=== PATIENT | male | born 1985 | race African-American/Black ===

== ENCOUNTER 2020-04-29 16:10 | Emergency (ER) | payer OTHER ==
[~2020-04-29] VITALS: Ht 193 cm; Wt 77.1 kg
[2020-04-29] MEDS ORDERED: SEIZURE MED (16:27)
[2020-04-30] MEDS ORDERED: METOPROLOL TART25 MG PO (04:01)
[2020-04-30] MEDS ORDERED: Phenergan25 M1 (04:01)
[2020-04-30] MEDS ORDERED: NEURONTIN300 MG PO (04:01)
[2020-04-30] MEDS ORDERED: CLON.1 PO (04:01)
[2020-04-30] MEDS ORDERED: Hydroxyzine HCl50 MG (04:01)
== END 2020-04-29 17:46 | disposition home or self-care (01) ==
LOC: ER 16:10
DX: F10.932 Alcohol use, unspecified with withdrawal with perceptual disturbance (principal); Z88.6 Allergy status to analgesic agent; Z88.5 Allergy status to narcotic agent
CPT/HCPCS: 99284

== ENCOUNTER 2020-04-29 22:28 | Inpatient (IN) | payer OTHER ==
[~2020-04-29] VITALS: Ht 193 cm; Wt 80.6 kg
[~2020-04-29 22:28] MED LIST: SEIZURE MED
[2020-04-29 22:54] LABS: BASOPHILS ABSOLUTE AUTO 0.05 K/mm3 (0.00-0.23); BASOPHILS PERCENT AUTO 1 % (0-2); EOSINOPHILS ABSOLUTE AUTO 0.09 K/mm3 (0.00-0.68); EOSINOPHILS PERCENT AUTO 2 % (0-6); Hematocrit 36.8 % (37.0-53.0); Hemoglobin 12.5 g/dL (13.5-17.5); IMMATURE GRAN ABSOLUTE AUTO 0.02 K/mm3 (0.00-0.10); IMMATURE GRAN PERCENT AUTO 0 % (0-1); LYMPHOCYTES ABSOLUTE AUTO 1.23 K/mm3 (0.84-5.20); LYMPHOCYTES PERCENT AUTO 24 % (21-46); MONOCYTES ABSOLUTE AUTO 0.67 K/mm3 (0.16-1.47); MONOCYTES PERCENT AUTO 13 % (4-13); Mean Corpuscular HGB 33.5 pg (26.0-34.0); Mean Corpuscular Volume 99 fL (80-100); Mean Platelet Volume 9.6 fL (9.1-12.4); NEUTROPHILS PERCENT AUTO 60 % (41-73); Platelet Count 220 K/mm3 (150-400); RDW Coefficient Variation 13.4 % (11.7-14.2); RDW Standard Deviation 48.8 fL (35.1-46.3); Red Blood Cell Count 3.73 M/mm3 (4.30-5.90); White Blood Cell Count 5.16 K/mm3 (4.00-11.30)
[2020-04-29 23:08] LABS: Alanine Aminotransfer (ALT/SGP 59 U/L (12-78); Albumin, Blood 4.1 g/dL (3.4-5.0); Albumin/Globulin Ratio 1.2 (0.8-1.8); Alk Phos 88 U/L (50-136); Anion Gap 7 mmol/L (6-16); Aspartate Aminotrans (AST/SGOT 103 U/L (12-37); Bilirubin, Total 0.5 mg/dL (0.1-1.0); Blood Urea Nitrogen 10 mg/dL (8-24); Bun/Creatinine Ratio 14.2 (12.0-20.0); CO2, Blood 28 mmol/L (21-32); Calcium, Blood 9.5 mg/dL (8.5-10.1); Chloride, Blood 105 mmol/L (98-108); Creatinine, Blood 0.71 mg/dL (0.60-1.20); Globulin, Blood 3.4 g/dL (2.2-4.0); Glomerular Filtration Rate >60 (60-); Glucose, Blood 111 mg/dL (70-99); Magnesium, Blood 1.5 mg/dL (1.6-2.4); Potassium, Blood 3.7 mmol/L (3.5-5.5); Sodium, Blood 140 mmol/L (136-145); Total Protein, Blood 7.5 g/dL (6.4-8.2)
[2020-04-29 23:33] LABS: Ethanol (Alcohol), Blood, Med <3 mg/dL
[2020-04-30] MEDS ORDERED: Phenergan25 M1 (04:01)
[2020-04-30] MEDS ORDERED: METOPROLOL TART25 MG PO (04:01)
[2020-04-30] MEDS ORDERED: Hydroxyzine HCl50 MG (04:01)
[2020-04-30] MEDS ORDERED: CLON.1 PO (04:01)
[2020-04-30] MEDS ORDERED: NEURONTIN300 MG PO (04:01)
--- NOTE | 2020-04-30 05:16 | NUR ---
ASSUMED PT CARE FROM ED AT 0413 PT NOTED TO HAVE A BASELINE TREMOR. ABLE TO OPEN EYES TO VERBAL STIMULI AND FOLLOW COMMANDS. PT ACTIVELY HAVING VISUAL AND AUDITORY HALLUCINATIONS. CALLING OUT FOR MEGHAN AND BELIEVES HE IS WATCHING SOMETHING ON THE TV. CIWA SCORE NOTED TO BE 16; THEREFORE, MEDICATED WITH 50MG OF LIBRIUM AND 4MG OF ATIVAN. PT IS FINALLY RESTING COMFORTABLY AFTER NOTING TO PICK AT THINGS ON THE BLANKETS, WELL ATTEMPTED TO GET OUT OF BED MULTIPLE TIMES. PT HAS BRIGHT RED SCLERA WITH GREEN DISCHARGE NOTED; THEREFORE, CALLED DR. RUTH FOR EYE OINTMENT ORDERS. BANANA BAG INFUSING AT 200MLS/HR VIA 20G TO RIGHT FOREARM. 18G NOTED TO LEFT AC. BED ALARM SET AND PT IS RESTING COMFORTABLY AT THIS TIME. WILL CONTINUE TO MONITOR UNTIL REPORT IS HANDED OFF TO ONCOMING RN.
--- NOTE | 2020-04-30 08:20 | NUR ---
ASSUMED CARE / DR MEDINA: REPORT RECEIVED FROM ABRAM Ch RN. ASSUMED CARE OF THIS PT AT APPROX 0700. ON ASSESSMENT, THE PT IS SUDDENLY AWAKE & HAVING VISUAL/ AUDITORY HALLUCTINATIONS, DURING WHICH TIME HE BELIEVES THAT HE IS AT HIS SISTER's HOME & IS CONVERSING W/ HER. SEE CIWA. HE REORIENTS EASILY BUT REMAINS FORGETFUL OVERALL. BED ALARM ON FOR HIGH FALL RISK. LS ARE CLEAR, DIM IN BASES. PT ON RA W/ O2 SATS > 92%. MONITOR SHOWS SR W/ HR 80s, BP STABLE. PT NPO R/T ETOH & AMS. BT NORMOACTIVE. HE IS ABLE TO VOID USING A URINAL WHEN AWAKE, ATTENDS IN PLACE. SKIN CONDITION OVERALL INTACT. PROVIDER HAS BEEN AT BEDSIDE THIS AM TO EVAL PT. CIWA NOTED TO BE 25 AT THIS TIME PT IS AWAKE, ANXIOUS, CONFUSED & HALLUCINATING - SEE CIWA. ORDERS PLACED FOR PT TO TRANSFER FROM PCU STATUS TO ICU STATUS. PROVIDER STS TO NOTIFY HER IF PRECEDEX INFUSION BECOMES NECESSARY. WILL CONTINUE TO MONITOR & UPDATE NEEDED.
--- NOTE | 2020-04-30 15:10 | NUR ---
UPDATE: CALL TO PROVIDER REGARDING PT's REQUEST FOR FOOD. HE HAS PASSED A BEDSIDE SWALLOW EVAL W/O DIFFICULTY & IS CURRENTLY SITTING UP, FULLY AWAKE. ORDERS PLACED FOR REGULAR DIET W/ FISH LISTED IN "DISLIKE" PER PT REQUEST.
--- NOTE | 2020-04-30 18:52 | NUR ---
SHIFT SUMMARY / UPDATE: PT HAS ESCALATED SLIGHTLY THIS AFTERNOON. OVERALL, HE IS PLEASANT, COOPERATIVE & REDIRECTABLE. AT TIMES, HE BECOMES INCREASINGLY AGITATED, ASKING TO BE "RELEASED" & HALLUCINATING CONVERSATIONS. THIS RN HAS NOTIFIED DAVID Alfredo NP, REGARDING THIS ISSUE & PRECEDEX HAS BEEN ORDERED. CURRENTLY INFUSING AT 0.4 MCG/KG/HR. LS CLEAR T/O, PT ON RA W/ O2 SATS > 92%. MONITOR SHOWS SR W/ HR 70s, BP STABLE. PT TOLERATING PO INTAKE WELL & SWALLOWING SAFELY WHEN FULLY AWAKE. PT VOIDS W/O DIFFICULTY & IS CONTINENT OF URINE. SKIN CONDITION OVERALL UNCHANGED & PT HAS BEEN ABLE TO REPOSITION SELF IN BED FOR COMFORT APPROX Q2H. WILL CONTINUE TO MONITOR & REPORT OFF TO ONCOMING RN.
--- NOTE | 2020-04-30 19:30 | NUR ---
PATIENT SLEEPING WHEN UNDISTURBED, AWAKENS TO SLIGHT STIMULI. SLOW TO ANSWER QUESTIONS, CONFUSION CONTINUES. FALLING BACK TO SLEEP WHEN UNDISTURBED. EXTREMITIES CONTINUE TO BE SHAKY. PRECEDEX AT 0.4 MCG.
--- NOTE | 2020-04-30 21:00 | NUR ---
PATIENT AWAKE UP TO SIDE OF BED TO USE URINAL, VERY SHAKY AND POOR BALANCE WHEN STANDING. PRECEDEX DECREASED TO 0.2 MCG
[2020-05-01 03:29] LABS: BASOPHILS ABSOLUTE AUTO 0.06 K/mm3 (0.00-0.23); BASOPHILS PERCENT AUTO 1 % (0-2); EOSINOPHILS ABSOLUTE AUTO 0.18 K/mm3 (0.00-0.68); EOSINOPHILS PERCENT AUTO 4 % (0-6); Hematocrit 38.8 % (37.0-53.0); Hemoglobin 13.3 g/dL (13.5-17.5); IMMATURE GRAN ABSOLUTE AUTO 0.01 K/mm3 (0.00-0.10); IMMATURE GRAN PERCENT AUTO 0 % (0-1); LYMPHOCYTES ABSOLUTE AUTO 1.36 K/mm3 (0.84-5.20); LYMPHOCYTES PERCENT AUTO 27 % (21-46); MONOCYTES ABSOLUTE AUTO 0.66 K/mm3 (0.16-1.47); MONOCYTES PERCENT AUTO 13 % (4-13); Mean Corpuscular HGB 33.9 pg (26.0-34.0); Mean Corpuscular HGB Conc 34.3 g/dL (31.5-36.5); Mean Corpuscular Volume 99 fL (80-100); Mean Platelet Volume 9.9 fL (9.1-12.4); NEUTROPHILS ABSOLUTE AUTO 2.85 K/mm3 (1.96-9.15); NEUTROPHILS PERCENT AUTO 56 % (41-73); Platelet Count 236 K/mm3 (150-400); RDW Coefficient Variation 13.6 % (11.7-14.2); RDW Standard Deviation 48.9 fL (35.1-46.3); Red Blood Cell Count 3.92 M/mm3 (4.30-5.90); White Blood Cell Count 5.12 K/mm3 (4.00-11.30)
[2020-05-01 03:45] LABS: Albumin, Blood 3.6 g/dL (3.4-5.0); Anion Gap 7 mmol/L (6-16); Blood Urea Nitrogen 9 mg/dL (8-24); Bun/Creatinine Ratio 14.2 (12.0-20.0); CO2, Blood 25 mmol/L (21-32); Chloride, Blood 111 mmol/L (98-108); Creatinine, Blood 0.63 mg/dL (0.60-1.20); Glomerular Filtration Rate >60 (60-); Glucose, Blood 96 mg/dL (70-99); Magnesium, Blood 2.1 mg/dL (1.6-2.4); Phosphorus, Blood 4.5 mg/dL (2.5-4.9); Potassium, Blood 3.7 mmol/L (3.5-5.5); Sodium, Blood 143 mmol/L (136-145)
--- NOTE | 2020-05-01 06:23 | NUR ---
PATIENT AWAKE, C/O LEFT LEG PAIN, VERBALIZED FEELS IF IT HAS FALLEN TO SLEEP. PATIENTS SPEECH CLEARER, PATIENT REMEMBERING THAT HE IS IN THE HOSPITAL UNSURE OF DAY ORIENT TO MONTH AND YEAR. PRECEDEX CONTINUES AT 0.2 MCG
--- NOTE | 2020-05-01 06:50 | NUR ---
SUMMARY PATIENT SLEEPING MOST OF THE NIGHT, AWAKENS TO SLIGHT STIMULI. PATIENT MORE AWAKE THIS MORNING, AND LESS CONFUSED. PRECEDEX 0.2 MCG CONTINUES.
--- NOTE | 2020-05-01 09:30 | NUR ---
ASSUMED CARE / DR MEDINA: REPORT RECEIVED FROM HOANG Alfredo RN. ASSUMED CARE OF THIS PT AT APPROX 0700. ON ASSESSMENT, THE PT IS RESTING SOUNDLY. HE AWAKENS EASILY TO VERBAL STIMULUS BUT QUICKLY RESUMES SLEEPING. PRECEDEX INFUSING AT 0.2 MCG/KG/HR. SEE CIWA. LS CLEAR T/O, PT ON RA W/ O2 SATS > 95%. MONITOR SHOWS SR W/ HR 60-70s, BP STABLE. PT NPO WHILE DROWSY BUT WILL BE ALLOWED TO HAVE PO INTAKE ONCE FULLY AWAKE. HE IS CONTINENT OF URINE, ATTENDS IN PLACE FOR PT's COMFORT. SKIN CONDITION OVERALL INTACT. PROVIDER AT BEDSIDE THIS AM. NO CHANGES AT THIS TIME. WILL CONTINUE TO MONITOR & UPDATE NEEDED.
--- NOTE | 2020-05-01 13:40 | NUR ---
DR MEDINA: PROVIDER AT BEDSIDE PER PT REQUEST HE WAS SLEEPING DURING PRIOR ROUNDS. GANESHX HAS BEEN OFF SINCE 1214. SHE HAS SPOKEN W/ THE PT & FEELS THAT HE IS NOW APPROPRIATE FOR A TRANSFER TO MEDICAL FLOOR, NO TELE. PRECEDEX ORDER D/C'd. PLAN IS FOR POSSIBLE D/C HOME TOMORROW IF PT's IMPROVEMENT CONTINUES & CIWA SCORES REMAIN LOW.
--- NOTE | 2020-05-01 17:29 | NUR ---
SHIFT SUMMARY: NO ACUTE CHANGES SINCE PRIOR UPDATES. THE PT HAS REMAINED PLEASANT & COOPERATIVE THIS AFTERNOON. SEE CIWA. HE HAS DANGLED AT BEDSIDE FOR MOST OF THE AFTERNOON & IS IN GOOD SPIRITS, STATING HE FEELS "WAY BETTER" THAN YESTERDAY. LS CLEAR, PT ON RA W/ O2 SATS > 92%. MONITOR SHOWS SR W/ HR 80s, BP STABLE. PT HAS NO GI COMPLAINTS & HAS A HEALTHY APPETITE. HE VOIDS W/O DIFFICULTY. SKIN CONDITION OVERALL UNCHANGED, CDI. PT HAS BEEN ASSIGNED ROOM 342 FOR TRANSFER. WILL CONTINUE TO MONITOR & REPORT OFF TO RN ASSUMING CARE.
--- NOTE | 2020-05-01 19:08 | NUR ---
TRANSFER TO MEDICAL FLOOR: REPORT HAS BEEN GIVEN TO RN TO ASSUME CARE & PT HAS BEEN TRANSFERRED TO [facility] AT APPROX 1850. PT's CHART & SHOES, WHICH ARE ONLY PRESENT BELONGINGS, HAVE BEEN TAKEN UP W/ HIM. AT THIS TIME HE HAS EXPRESSED CONCERN OVER THE LOCATION OF HIS [place]. THIS RN HAS CONTACTED [facility] IN REGARDS TO THIS & FOUND OUT THAT ALL OF THE PT's BELONGINGS ARE CURRENTLY STILL AT THE [facility]ACILITY, LOCKED UP & SAFE. THIS RN HAS NOTIFIED THE PT's NURSE & SHE HAS INFORMED THE PT OF THIS.
[2020-05-02 05:14] LABS: BASOPHILS ABSOLUTE AUTO 0.06 K/mm3 (0.00-0.23); BASOPHILS PERCENT AUTO 1 % (0-2); EOSINOPHILS ABSOLUTE AUTO 0.18 K/mm3 (0.00-0.68); EOSINOPHILS PERCENT AUTO 3 % (0-6); Hematocrit 38.2 % (37.0-53.0); IMMATURE GRAN ABSOLUTE AUTO 0.02 K/mm3 (0.00-0.10); IMMATURE GRAN PERCENT AUTO 0 % (0-1); LYMPHOCYTES ABSOLUTE AUTO 1.79 K/mm3 (0.84-5.20); LYMPHOCYTES PERCENT AUTO 26 % (21-46); MONOCYTES PERCENT AUTO 16 % (4-13); Mean Corpuscular HGB 33.4 pg (26.0-34.0); Mean Corpuscular Volume 98 fL (80-100); Mean Platelet Volume 9.9 fL (9.1-12.4); NEUTROPHILS PERCENT AUTO 55 % (41-73); Platelet Count 269 K/mm3 (150-400); RDW Coefficient Variation 13.3 % (11.7-14.2); Red Blood Cell Count 3.89 M/mm3 (4.30-5.90); White Blood Cell Count 6.95 K/mm3 (4.00-11.30)
[2020-05-02 05:30] LABS: Albumin, Blood 3.5 g/dL (3.4-5.0); Anion Gap 6 mmol/L (6-16); Blood Urea Nitrogen 14 mg/dL (8-24); CO2, Blood 26 mmol/L (21-32); Chloride, Blood 109 mmol/L (98-108); Creatinine, Blood 0.61 mg/dL (0.60-1.20); Glomerular Filtration Rate >60 (60-); Glucose, Blood 98 mg/dL (70-99); Phosphorus, Blood 4.3 mg/dL (2.5-4.9); Potassium, Blood 3.6 mmol/L (3.5-5.5); Sodium, Blood 141 mmol/L (136-145)
[2020-05-02] MEDS ORDERED: NICODERM CQ1 EAC2 TOP (11:20)
[2020-05-02] MEDS ORDERED: ONE DAILY ESS400 MCG PO (11:21)
== END 2020-05-02 12:32 | disposition home or self-care (01) | DRG 897 ==
LOC: ER 22:28 → ICUW 04-30 03:43 → MEDS 05-01 18:51
PROVIDERS: Emergency Medicine; Family Medicine; ADMIT Internal Medicine
PROC: HZ2ZZZZ Detoxification Services for Substance Abuse Treatment (ICD-10-PCS; principal; 2020-04-30)
DX: F10.239 Alcohol dependence with withdrawal, unspecified (principal); E83.42 Hypomagnesemia; Y90.0 Blood alcohol level of less than 20 mg/100 ml; Z88.8 Allergy status to other drugs, medicaments and biological substances; Z79.899 Other long term (current) drug therapy
CPT/HCPCS: 36415; 80053; 80069; 83735; 85025; 93005; 93010; 96365; 96375; 96376; 99285-25; A9270; G0480; J1650; J2060; J3411; J3475; J7042

== ENCOUNTER → 2022-06-12 | Outpatient (CLI) | payer OTHER ==
[~2022-06-12] MED LIST changes: +CLON.1 PO; +Hydroxyzine HCl50 MG; +METOPROLOL TART25 MG PO; +NEURONTIN300 MG PO; +NICODERM CQ1 EAC2 TOP; +ONE DAILY ESS400 MCG PO; +Phenergan25 M1
[2022-06-12 18:46] LABS: BASOPHILS ABSOLUTE AUTO 0.08 K/mm3 (0.00-0.23); BASOPHILS PERCENT AUTO 1 % (0-2); EOSINOPHILS ABSOLUTE AUTO 0.48 K/mm3 (0.00-0.68); EOSINOPHILS PERCENT AUTO 6 % (0-6); Hematocrit 48.6 % (37.0-53.0); Hemoglobin 16.3 g/dL (13.5-17.5); IMMATURE GRAN ABSOLUTE AUTO 0.01 K/mm3 (0.00-0.10); IMMATURE GRAN PERCENT AUTO 0 % (0-1); LYMPHOCYTES PERCENT AUTO 41 % (21-46); MONOCYTES ABSOLUTE AUTO 0.56 K/mm3 (0.16-1.47); MONOCYTES PERCENT AUTO 7 % (4-13); Mean Corpuscular HGB 29.4 pg (26.0-34.0); Mean Corpuscular HGB Conc 33.5 g/dL (31.5-36.5); Mean Corpuscular Volume 88 fL (80-100); Mean Platelet Volume 9.7 fL (9.1-12.4); NEUTROPHILS ABSOLUTE AUTO 3.69 K/mm3 (1.96-9.15); NEUTROPHILS PERCENT AUTO 46 % (41-73); Platelet Count 324 K/mm3 (150-400); RDW Coefficient Variation 12.7 % (11.7-14.2); Red Blood Cell Count 5.54 M/mm3 (4.30-5.90); White Blood Cell Count 8.12 K/mm3 (4.00-11.30)
[2022-06-12 21:44] LABS: Percent Saturation 29.3 % (20.0-50.0)
[2022-06-12 22:07] LABS: Albumin, Blood 4.3 g/dL (3.4-5.0); Albumin/Globulin Ratio 1.3 (0.8-1.8); Bilirubin, Total 0.5 mg/dL (0.1-1.0); Bun/Creatinine Ratio 12.9 (12.0-20.0); Calcium, Blood 9.4 mg/dL (8.5-10.1); Creatinine, Blood 0.85 mg/dL (0.60-1.20); Globulin, Blood 3.2 g/dL (2.2-4.0); Potassium, Blood 3.9 mmol/L (3.5-5.5); Thyroid Stimulating Hormone 1.22 uIU/mL (0.360-4.800); Total Protein, Blood 7.5 g/dL (6.4-8.2)
== END | disposition home or self-care (01) ==
LOC: LAB SHORT 11:10
PROVIDERS: Family Medicine
DX: I10 Essential (primary) hypertension (principal); Z79.899 Other long term (current) drug therapy
CPT/HCPCS: 80053; 82607; 82728; 82746; 83540; 83550; 84443; 85025